=== PATIENT | male | born 1965 | race Caucasian/White ===

== ENCOUNTER 2017-06-26 23:58 | Emergency (ER) | payer SELFPAY ==
[2017-06-27 01:30] VITALS: BP 131/80
[2017-06-27] MEDS ORDERED: PENICILLIN V POTASSIUM 500 MG TABLET PO ONE (01:46)
--- NOTE | 2017-06-27 01:49 | ER Document Report ---
ED General - General Chief Complaint: Toothache Stated Complaint: TOOTH PAIN Time Seen by Provider: 06/27/17 01:18 Notes: Patient is a 51-year-old male presents with complaint of tooth pain. Patient has fractured left upper premolar. Patient says this happened several months ago. He is unable to see a dentist due to insurance and monetary issues. In the last day or 2 he has had worsening pain and now has swelling to the left face. No swelling to the neck. No difficulty breathing. No difficulty swallowing. No fevers. TRAVEL OUTSIDE OF THE [place] IN LAST 30 DAYS: No - Related Data Allergies/Adverse Reactions: No Known Allergies Allergy (Verified 06/27/17 00:10) Past Medical History - Social History Smoking Status: Current Every Day Smoker Cigarette use (# per day): Yes Frequency of alcohol use: Social Drug Abuse: None Family History: Reviewed & Not Pertinent Renal/ Medical History: Denies: Hx Peritoneal Dialysis Review of Systems - Review of Systems Notes: My Normal Review Basic REVIEW OF SYSTEMS: CONSTITUTIONAL : Denies fever, chills, or sweats. Denies recent illness. EENT: Tooth pain SKIN: Denies rash or skin lesions. NEUROLOGICAL: Denies altered mental status or loss of consciousness. ALL OTHER SYSTEMS REVIEWED AND NEGATIVE. Physical Exam - Vital signs Vitals: Temp Pulse Resp BP Pulse Ox 97.7 F 76 20 131/92 H 97 06/27/17 00:10 06/27/17 00:10 06/27/17 00:10 06/27/17 00:10 06/27/17 00:10 - Notes Notes: General Appearance: Well nourished, alert, cooperative, no acute distress, mild obvious discomfort. Vitals: reviewed, See vital signs table. Head: Mild swelling to the left side of face. No swelling below the mandible. Eyes: PERRL, EOMI, Conjuctiva clear Mouth: Patient has a partially fractured premolar of the left upper jaw. Throat: No tonsillar inflammation, No airway obstruction, No lymphadenopathy Neck: Supple, no neck tenderness, No swelling. Neuro: speech clear, oriented x 3, normal affect, responds appropriately to questions. Course - Vital Signs Vital signs: Temp Pulse Resp BP Pulse Ox 97.9 F 78 18 131/80 H 98 06/27/17 01:13 06/27/17 01:06/27/17 01:13 06/27/17 01:13 06/27/17 01:13 Discharge - Discharge Clinical Impression: Toothache, Dental infection Condition: Good Disposition: HOME, SELF-CARE Instructions: [facility], Penicillin V K ([facility]), Toothache ([facility]) Additional Instructions: Please take the antibiotic as prescribed. Please call the [facility] and ask for their dental clinic. Please make an appointment to have your tooth pulled. Please return to the ER if you have worsening facial swelling, fevers, swelling below the jaw, difficulty breathing, or difficulty swallowing. Prescriptions: Penicillin V Potassium [Penicillin Vk 500 mg Tablet] 500 mg PO BID #20 tablet Forms: Return to Work
== END 2017-06-27 01:52 | disposition home or self-care (01) ==
LOC: ER 23:58
DX: K04.7 Periapical abscess without sinus (principal); K08.89 Other specified disorders of teeth and supporting structures; F17.210 Nicotine dependence, cigarettes, uncomplicated
CPT/HCPCS: 99282